=== PATIENT | male | born 1995 | race Caucasian/White ===

== ENCOUNTER 2019-02-07 23:45 | Emergency (ER) | payer SELFPAY ==
[2019-02-08] MEDS ORDERED: cefTRIAXone 1 GM Vial IM ONE (00:15)
[2019-02-08] MEDS ORDERED: Lidocaine 1% PF 2 ML SDV INJECT ONE (00:15)
--- NOTE | 2019-02-08 00:16 | EDM.PDOC ---
ED HPI GENERAL MEDICAL PROBLEM - General Chief Complaint: ENT Problem Stated Complaint: SORE THROAT Time Seen by Provider: 02/08/19 00:10 Source of Information: Reports: Patient History Limitations: Reports: No Limitations - History of Present Illness INITIAL COMMENTS - FREE TEXT/NARRATIVE: 23-year-old male attends the ED with sore throat for the last 5-6 days which is progressively getting worse. He states he feels like that his right side of his throat is worse on the left. States he has a cough which is mostly bringing up clear sputum. Feels like he is losing his voice more today. Not aware of any fever or chills. Appetite has been poor. Feels his ears are plugged but they don 't hurt. Still has his tonsils in place. Onset: Gradual Onset Date: 02/03/19 Duration: Day(s):, Getting Worse Location: Reports: Neck (Throat pain with difficulty swallowing) Quality: Reports: Ache, Pressure Severity: Moderate Improves with: Reports: None (610) Worsens with: Reports: Eating Context: Denies: Activity, Exercise, Lifting, Sick Contact, Trauma, Other Associated Symptoms: Reports: Cough, cough w sputum, Loss of Appetite, Weakness. Denies: No Other Symptoms, Confusion, Chest Pain (Clear sputum), Diaphoresis, Fever/Chills, Headaches, Malaise, Nausea/Vomiting, Rash, Shortness of Breath, Syncope Treatments SUPERVISING APPRAISER: Reports: Other (see below) (None.) Throat Pain Score (Numeric/FACES): 9 - Related Data Allergies Allergy/AdvReac Type Severity Reaction Status Date / Time No Known Allergies Allergy Verified 02/08/19 00:06 Home Meds: Home Meds Doxycycline [Vibramycin] 100 mg PO BID #14 cap 02/08/19 [Rx] Past Medical History - Past Health History Medical/Surgical History: Denies Medical/Surgical History Social & Family History - Tobacco Use Smoking Status *Q: Current Every Day Smoker Years of Tobacco use: 5 Packs/Tins Daily: 0.5 - Recreational Drug Use Recreational Drug Type: Reports: Marijuana/Hashish (Daily) - Living Situation & Occupation Living situation: Reports: Single Occupation: Employed ED ROS ENT - Review of Systems Review Of Systems: See Below Constitutional: Reports: Malaise, Weakness, Fatigue, Decreased Appetite HEENT: Reports: Ear Pain, Throat Pain, Throat Swelling, Other (Decreased hearing right ear) Respiratory: Reports: Cough, Sputum. Denies: Wheezing, Pleuritic Chest Pain Cardiovascular: Denies: Chest Pain, Blood Pressure Problem, Claudication, Dyspnea on Exertion, Edema, Lightheadedness, Orthopnea Endocrine: Reports: Fatigue GI/Abdominal: Reports: No Symptoms : Reports: No Symptoms ED EXAM, ENT - Physical Exam Exam: See Below Exam Limited By: No Limitations General Appearance: Alert, WD/WN, No Apparent Distress, Other (Smell strongly of marijuana. He is mildly warm to palpation.) Eye Exam: Bilateral Eye: Normal Inspection Ears: Other (Left TM is normal. The right is covered by cerumen.) Nose: Normal Inspection, Normal Mucousa Mouth/Throat: Pharyngeal Erythema ( laterally worse on the right as compared to the left use pharyngeal erythema ), Tonsillar Erythema ( on the right tonsil), Tonsillar Exudates (Right side is 3 times normal size), Tonsillar Swelling, Other (No evidence of peritonsillar abscess). No: Uvular Deviation Head: Atraumatic, Normocephalic Neck: Normal Inspection, Supple, Non-Tender, Full Range of Motion, Other (No muffling of his voice.). No: Lymphadenopathy (L), Lymphadenopathy (R) Respiratory/Chest: No Respiratory Distress, Lungs Clear, Normal Breath Sounds, No Accessory Muscle Use Cardiovascular: Normal Peripheral Pulses, Regular Rate, Rhythm, No Edema, No Gallop, No Murmur, No Rub GI/Abdominal: Normal Bowel Sounds, Soft, Non-Tender, No Organomegaly, No Abnormal Bruit, No Mass, Pelvis Stable Back: Normal Inspection, Full Range of Motion. No: CVA Tenderness (L), CVA Tenderness (R) Extremities: Normal Inspection, Normal Range of Motion, Non-Tender, No Pedal Edema Neurological: Alert, Oriented, CN II-XII Intact, Normal Cognition, Normal Gait Psychiatric: Normal Affect, Normal Mood Skin: Warm, Dry, Intact, Normal Color, No Rash Course - Vital Signs Last Recorded V/S: Last Vital Signs Temp 37.7 C 02/08/19 00:03 Pulse 83 02/08/19 00:03 Resp 16 02/08/19 00:03 BP 116/74 02/08/19 00:03 Pulse Ox 97 02/08/19 00:03 - Orders/Labs/Meds Orders: Active Orders 24 hr Category Date Time Status Rapid Strep w/culture conf [STREP SCRN A RAPID W CULT Lab 02/08/19 00:02 Received CONF] [RM] Stat Meds: Medications Discontinued Medications Generic Name Dose Route Start Last Admin Trade Name Ritesh PRN Reason Stop Dose Admin Ceftriaxone Sodium 1 gm 02/08/19 00:15 Rocephin IM 02/08/19 00:16 ONETIME ONE Lidocaine HCl 2 ml 02/08/19 00:15 Xylocaine-Mpf 1% INJECT 02/08/19 00:16 ONETIME ONE - Radiology Interpretation Free Text/Narrative:: 23-year-old male presents to the ED with gradually worsening sore throat over the last for 5 days. Complains of decreased hearing in his right ear particularly mild nonproductive cough. Examination reveals he is mildly febrile. His right ear is totally occluded by cerumen. Left tympanic membrane is normal nose is normal oropharynx shows tonsillitis with the right tonsil being about 3-4 times greater in size than the left one. Both are erythematous with exudate. Diffuse erythema of the posterior oropharynx is also a smoker. Minimal cervical adenopathy appreciated worse on the right side as compared to the left chest is clear to stage percussion. Patient requests I am injection of medication. Therefore given Rocephin 1 g IM with 2 mils of lidocaine. He'll be discharged on doxepin 100 mg twice a day for the next 14 days any Motrin 600 mg every 6 hours needed for fever or pain relief. Departure - Departure Time of Disposition: 00:17 Disposition: Home, Self-Care 01 Condition: Fair Clinical Impression: Tonsillitis with exudate, Impacted cerumen of right ear - Discharge Information *PRESCRIPTION DRUG MONITORING PROGRAM REVIEWED*: Not Applicable *COPY OF PRESCRIPTION DRUG MONITORING REPORT IN PATIENT OCTAVIO: Not Applicable Prescriptions: Doxycycline [Vibramycin] 100 mg PO BID #14 cap Instructions: Tonsillitis, [id number] Referrals: PCP,None [Primary Care Provider] - Forms: ED Department Discharge Additional Instructions: Evaluation the emergency room today in regards to persistent sore throat over the last 5-6 days and actually getting worse. Examination reveals redo have a low-grade fever. The right ear is plugged up by ear wax up against her eardrum. Eardrum is normal. Oropharynx shows that you have tonsillitis particularly the right tonsil is 3 times larger than normal. The left is mildly enlarged. No significant lymphadenopathy in the neck. Jugular clear to auscultation. Treatment is IM injection of Rocephin 1 g of given in the ED per your request. He will need to start oral antibiotic doxycycline 100 mg twice daily for the next 7 days tomorrow at suppertime. Continue Motrin 600 mg every 6 hours as needed for fever relief and/or pain relief. Expect marked improvement over the next 36-48 hours - My Orders Last 24 Hours: My Active Orders 02/08/19 00:02 Rapid Strep w/culture conf [STREP SCRN A RAPID W CULT CONF] [] Stat - Assessment/Plan Last 24 Hours: My Active Orders 02/08/19 00:02 Rapid Strep w/culture conf [STREP SCRN A RAPID W CULT CONF] [] Stat
== END 2019-02-08 00:32 | disposition home or self-care (01) ==
LOC: JD.ED 23:45
DX: J03.90 Acute tonsillitis, unspecified (principal); H61.21 Impacted cerumen, right ear; F17.210 Nicotine dependence, cigarettes, uncomplicated
CPT/HCPCS: 87081; 87430; 96372; 99283; J0696; J2001

== ENCOUNTER 2019-07-16 19:14 | Emergency (ER) | payer SELFPAY ==
[2019-07-16] MEDS ORDERED: HYDROmorphone 0.5 MG/0.5 ML Syringe IM ONE (20:14)
--- NOTE | 2019-07-16 21:59 | EDM.PDOC ---
ED HPI GENERAL MEDICAL PROBLEM - General Chief Complaint: Upper Extremity Injury/Pain Stated Complaint: RIGHT HAND INJURY PUNCHED SOMETHING Time Seen by Provider: 07/16/19 19:43 Source of Information: Reports: Patient, RN Notes Reviewed History Limitations: Reports: No Limitations - History of Present Illness INITIAL COMMENTS - FREE TEXT/NARRATIVE: Patient is a 23-year-old male who presents to the ED for evaluation of a right hand injury. Patient states he was angry yesterday morning and punched a refrigerator with his right hand. He noticed some pain into his right hand after this. He also has noticed some swelling, there are no cuts or abrasions to this area. He denies any numbness or tingling distal to the injury. The patient did not take any sort of pain medication prior to arrival to the ER. He notes his predominantly right-handed. Right Hand Pain Score (Numeric/FACES): 4 - Related Data Allergies Allergy/AdvReac Type Severity Reaction Status Date / Time No Known Allergies Allergy Verified 07/16/19 19:37 Home Meds: Home Meds . [No Known Home Meds] 07/16/19 [History] Past Medical History - Past Health History Medical/Surgical History: Denies Medical/Surgical History Social & Family History - Tobacco Use Smoking Status *Q: Current Every Day Smoker Years of Tobacco use: 5 Packs/Tins Daily: 1 - Recreational Drug Use Recreational Drug Use: No - Living Situation & Occupation Living situation: Reports: Single Occupation: Employed Review of Systems - Review of Systems Review Of Systems: ROS reveals no pertinent complaints other than HPI. Musculoskeletal: Reports: Hand Pain (Right hand pain) Neurological: Denies: Numbness, Tingling ED EXAM, GENERAL - Physical Exam Exam: See Below Exam Limited By: No Limitations General Appearance: Alert, WD/WN, No Apparent Distress Respiratory/Chest: No Respiratory Distress, Lungs Clear, Normal Breath Sounds, No Accessory Muscle Use, Chest Non-Tender Cardiovascular: Normal Peripheral Pulses, Regular Rate, Rhythm, No Murmur Peripheral Pulses: 3+: Radial (L), Radial (R) Extremities: Normal Inspection, Normal Range of Motion, Normal Capillary Refill , Joint Swelling (mild swelling noted to the 5th MCP area of right hand) Neurological: Alert, Oriented, Normal Cognition, No Motor/Sensory Deficits Psychiatric: Normal Affect, Normal Mood Skin Exam: Warm, Dry, Intact, Normal Color, No Rash ED TRAUMA EXTREMITY PROCEDURES - Splinting Right Upper Extremity Splint Site: right hand Pre-Procedure NV Status: Normal Post-Procedure NV Status: Normal Splint Material: Fiberglass Splint Design: Gutter (ulnar butter) Applied & Form Fitted By: Provider, Nurse Provider Post-Splint Application NV Check: NV Status Normal, Good Position Complications: No Course - Vital Signs Last Recorded V/S: Last Vital Signs Temp 98.9 F 07/16/19 19:38 Pulse 101 H 07/16/19 19:38 Resp 15 07/16/19 19:38 BP 147/89 H 07/16/19 19:38 Pulse Ox 99 07/16/19 19:38 - Orders/Labs/Meds Orders: Active Orders 24 hr Category Date Time Status Hand Comp Min 3V Rt [CR] Stat Exams 07/16/19 19:43 Taken Meds: Medications Discontinued Medications Generic Name Dose Route Start Last Admin Trade Name Freq PRN Reason Stop Dose Admin Hydromorphone HCl 0.5 mg 07/16/19 20:14 07/16/19 20:25 Dilaudid IM 07/16/19 20:15 0.5 mg ONETIME ONE Administration - Re-Assessments/Exams Free Text/Narrative Re-Assessment/Exam: 07/16/19 21:56 Patient presents to the ED for evaluation of a right hand injury, x-rays were obtained and do demonstrate a boxer's fracture of the fifth metacarpal of the right hand. We'll place the patient in a ulnar gutter splint and have him follow up with Ortho. We'll give the patient some pain medication in the event that his pain is not relieved by Tylenol or ibuprofen alone. Departure - Departure Time of Disposition: 21:57 Disposition: Home, Self-Care 01 Condition: Fair Clinical Impression: Closed fracture of 5th metacarpal Qualifiers: Encounter type: initial encounter Metacarpal location: unspecified portion of metacarpal Fracture alignment: nondisplaced Laterality: right Qualified Code(s) : S62.306A - Unspecified fracture of fifth metacarpal bone, right hand, initial encounter for closed fracture - Discharge Information *PRESCRIPTION DRUG MONITORING PROGRAM REVIEWED*: No *COPY OF PRESCRIPTION DRUG MONITORING REPORT IN PATIENT OCTAVIO: No Instructions: Metacarpal Fracture, [id number] Referrals: PCP,None [Primary Care Provider] - Additional Instructions: You have been evaluated in the ED for your hand injury. Your x-ray demonstrated a fracture of the 5th metacarpal of your right hand. Please use ice as tolerated to the affected area. You may take Tylenol 500 mg or ibuprofen 600mg q6 hrs for pain relief. Please do so until you have a tolerable level of pain with activity. Do not exceed 4000mg tylenol, Do not exceed 3200mg ibuprofen in a 24 hour time period. You were given tablets of Percocet in the event that your pain is not relieved by Tylenol or ibuprofen alone. Please use this only as needed. Please call Ortho for follow-up and further evaluation Dr. Zarate is our orthopedic surgeon, his office number is [phone]. Please call and set up an appointment as soon as possible for further management. Please return to ED if your symptoms should change or worsen. - My Orders Last 24 Hours: My Active Orders 07/16/19 19:43 Hand Comp Min 3V Rt [CR] Stat - Assessment/Plan Last 24 Hours: My Active Orders 07/16/19 19:43 Hand Comp Min 3V Rt [CR] Stat
--- NOTE | 2019-07-18 07:15 | CR ---
Right hand: Four views of the right hand were obtained. Comparison: No previous study. Distal right 5th metacarpal fracture is seen with apex posterior angulation. Soft tissue swelling is noted. No additional fracture or other bony abnormality is seen. Impression: 1. Angulated distal right 5th metacarpal fracture with soft tissue swelling. Diagnostic code #3
== END 2019-07-16 23:00 | disposition home or self-care (01) ==
LOC: JD.ED 19:14
DX: S62.336A Displaced fracture of neck of fifth metacarpal bone, right hand, initial encounter for closed fracture (principal); F17.210 Nicotine dependence, cigarettes, uncomplicated; W22.8XXA Striking against or struck by other objects, initial encounter
CPT/HCPCS: 29125; 73130; 96372; 99283; J1170

== ENCOUNTER 2021-10-08 17:02 | Emergency (ER) | payer MEDICAID ==
--- NOTE | 2021-10-08 18:03 | EDM.PDOC ---
ED HPI GENERAL MEDICAL PROBLEM - General Chief Complaint: ENT Problem Stated Complaint: SORE THROAT Time Seen by Provider: 10/08/21 17:50 Source of Information: Reports: Patient, RN Notes Reviewed History Limitations: Reports: No Limitations - History of Present Illness INITIAL COMMENTS - FREE TEXT/NARRATIVE: Patient is a 25-year-old male who presents to the ER for his sore throat. States that he has had strep throat in the past and this does seem similar to strep throat that he has had. He has had a mild fever, today at 100 F. States that it is very difficult to eat or drink much anything due to the pain in his throat. He has not taken anything for the pain however. Other than the fever today he has had some slight nausea but no vomiting or diarrhea or any cough or shortness of breath. - Related Data Allergies Allergy/AdvReac Type Severity Reaction Status Date / Time No Known Allergies Allergy Verified 07/16/19 19:37 Home Meds: Home Meds Amoxicillin 500 mg PO BID 10 Days #20 tab 10/08/21 [Rx] Codeine/Promethazine [Phenergan with Codeine] 5 ml PO Q4HR PRN #120 ml 10/08/21 [Rx] Past Medical History - Past Health History Medical/Surgical History: Denies Medical/Surgical History Social & Family History - Tobacco Use Tobacco Use Status *Q: Current Every Day Tobacco User Years of Tobacco use: 5 Packs/Tins Daily: 0.5 - Living Situation & Occupation Living situation: Reports: Single Occupation: Employed ED ROS ENT - Review of Systems Review Of Systems: Comprehensive ROS is negative, except as noted in HPI. ED EXAM, ENT - Physical Exam Exam: See Below Exam Limited By: No Limitations General Appearance: Alert, WD/WN, No Apparent Distress Mouth/Throat: Normal Inspection, Normal Gums, Normal Lips, Pharyngeal Erythema Respiratory/Chest: No Respiratory Distress, Lungs Clear, Normal Breath Sounds, N o Accessory Muscle Use, Chest Non-Tender Cardiovascular: Normal Peripheral Pulses, Regular Rate, Rhythm, No Edema GI/Abdominal: Normal Bowel Sounds, Soft, Non-Tender, No Distention, No Mass Extremities: Normal Inspection, Normal Capillary Refill Neurological: Alert, Oriented, Normal Cognition, No Motor/Sensory Deficits Psychiatric: Normal Affect, Normal Mood Skin: Warm, Dry, Intact, Normal Color, No Rash Course - Vital Signs Last Recorded V/S: Last Vital Signs Temp 100.4 F 10/08/21 17:29 Pulse 99 10/08/21 17:29 Resp 16 10/08/21 17:29 BP 115/80 10/08/21 17:29 Pulse Ox 97 10/08/21 17:29 - Orders/Labs/Meds Labs: Laboratory Tests 10/08/21 Range/Units 17:35 Group A Strep (PCR) Not detected (NOT DETECT) - Re-Assessments/Exams Free Text/Narrative Re-Assessment/Exam: 10/08/21 18:03 Patient presents to the ER for evaluation of a sore throat. Strep swab was obtained at the time of triage, we will go ahead and await that for further management. 10/08/21 18:32 Patient strep screen did return negative. Due to his fever and ongoing symptoms we will do treatment with amoxicillin however plan will be to discharge home with conservative recommendations. Departure - Departure Time of Disposition: 18:33 Disposition: Home, Self-Care 01 Condition: Good Clinical Impression: Pharyngitis Qualifiers: Pharyngitis/tonsillitis etiology: other specified organisms Qualified Code(s): J02.8 - Acute pharyngitis due to other specified organisms - Discharge Information *PRESCRIPTION DRUG MONITORING PROGRAM REVIEWED*: No *COPY OF PRESCRIPTION DRUG MONITORING REPORT IN PATIENT OCTAVIO: No Prescriptions: Amoxicillin 500 mg PO BID 10 Days #20 tab Instructions: Pharyngitis, [id number] Referrals: PCP,None [Primary Care Provider] - Forms: ED Department Discharge Sepsis Event Note (ED) - Evaluation Sepsis Screening Result: No Definite Risk - Focused Exam Vital Signs: Vital Signs Temp Pulse Resp BP Pulse Ox 10/08/21 17:29 100.4 F 99 16 115/80 97
== END 2021-10-08 18:57 | disposition home or self-care (01) ==
LOC: JD.ED 17:02
DX: J02.8 Acute pharyngitis due to other specified organisms (principal); Z72.0 Tobacco use
CPT/HCPCS: 87651-QW; 99283

== ENCOUNTER 2023-07-29 16:15 | Emergency (ER) | payer SELFPAY | END 2023-07-29 18:20 | disposition home or self-care (01) | LOC: JD.ED 16:15 | DX: S63.501A Unspecified sprain of right wrist, initial encounter (principal); W20.8XXA Other cause of strike by thrown, projected or falling object, initial encounter | CPT/HCPCS: 73110-26-RT; 73110-RT; 99283 ==

== ENCOUNTER 2023-09-02 21:53 | Emergency (ER) | payer MEDICAID | END 2023-09-02 23:25 | disposition left against medical advice (07) | LOC: JD.ED 21:53 | DX: Z53.21 Procedure and treatment not carried out due to patient leaving prior to being seen by health care provider (principal); F17.210 Nicotine dependence, cigarettes, uncomplicated; Z86.16 Personal history of COVID-19 | CPT/HCPCS: 99281 ==